=== PATIENT | male | born 1940 | race Asian ===

== ENCOUNTER 2021-09-06 17:00 | Emergency (ER) | payer OTHER ==
[~2021-09-06] VITALS: Ht 182.9 cm; Wt 99.8 kg
[2021-09-06 17:03] VITALS: BP 15/75; TEMP 98.8
[2021-09-06 17:19] LABS: PLATELET COUNT 123 K/uL (142-355)
[2021-09-06 17:25] LABS: POTASSIUM 3.9 mmol/L (3.6-5.2)
[2021-09-07] MEDS ORDERED: OMEPRAZOLE40 MG PO (05:21)
[2021-09-07] MEDS ORDERED: NIFE30TA PO (05:24)
[2021-09-07] MEDS ORDERED: ISONIAZID300 MG PO (05:26)
[2021-09-07] MEDS ORDERED: PYRIDOXINE25 MG PO (05:28)
[2021-09-07] MEDS ORDERED: ESCITALOPRAM5 MG PO (05:30)
[2021-09-07] MEDS ORDERED: BRIMONIDINE0.2 % OPTH (05:33)
[2021-09-07] MEDS ORDERED: PILOCARPINE 4% OPTH (05:34)
[2021-09-07] MEDS ORDERED: ENTRESTO 24-261 TAB PO (05:35)
[2021-09-07] MEDS ORDERED: TRAZODONE HYDRO50 MG PO (05:37)
[2021-09-07] MEDS ORDERED: BUSPIRONE10 MG PO (05:38)
[2021-09-07] MEDS ORDERED: LATANOPROST0.005 % OPTH (05:39)
[2021-09-07] MEDS ORDERED: PRAVACHOL20 MG PO (05:41)
[2021-09-07] MEDS ORDERED: DOXAZOSIN2 M1 PO (05:42)
== END 2021-09-06 18:01 | disposition still patient (30) ==
LOC: ED 17:00
PROVIDERS: Hospitalist
DX: F25.8 Other schizoaffective disorders (principal); R46.89 Other symptoms and signs involving appearance and behavior; C95.10 Chronic leukemia of unspecified cell type not having achieved remission; Z11.52 Encounter for screening for COVID-19; Z04.6 Encounter for general psychiatric examination, requested by authority
CPT/HCPCS: 80053; 81000; 85007; 85027; 87635; 93005; 99283; U0003